=== PATIENT | male | born 1955 | race Caucasian/White ===

== ENCOUNTER 2017-08-28 18:37 | Inpatient (IN) | payer MEDICAID ==
[~2017-08-28] VITALS: Ht 182.9 cm; Wt 87.1 kg
[2017-08-28] MEDS ORDERED: VANCOMYCIN 1 G PREMIX 200 ML IV SCH (21:30)
[2017-08-28] MEDS ORDERED: PIPERACILLIN/TAZOBACTAM 3.375GM/50ML PREMIX IV ONE (21:30)
[2017-08-28] MEDS ORDERED: PIPERACILLIN/TAZ 3.375G PREMIX 50 ML IV NR (21:45)
[2017-08-28] MEDS ORDERED: MORPHINE SULFATE 4 MG/ML CPJ (NOT FOR IM USE) IV ONE (21:45)
[2017-08-28 22:33] LABS: BASOPHILS % 0.8 % (0.0-2.0); EOSINOPHILS % 2.9 % (0.0-5.0); HEMOGLOBIN. 14.1 g/dL (14.0-18.0); LYMPHOCYTES % 24.4 % (20.0-50.0); MEAN CORPUSCULAR HEMOGLOBIN 33.3 pg (28.0-32.0); MEAN PLATELET VOLUME 6.7 fl (7.4-10.4); MONOCYTES % 7.3 % (2.0-8.0); NEUTROPHILS % 64.6 % (40.0-76.0); PLATELET 435 x1000/uL (130-400); RED BLOOD CELL COUNT 4.22 mill/uL (4.7-6.1)
[2017-08-28 22:42] LABS: PROTHROMBIN TIME 10.2 sec (9.4-11.6)
[2017-08-28 22:45] LABS: CHLORIDE 103 mEq/L (98-107)
[2017-08-28] MEDS ORDERED: GABAPENTIN 300MG CAPSULE PO ONE (23:30)
[2017-08-28] MEDS ORDERED: HYDROCODONE/ACETAMINOPHEN 5/325MG TABLET PO ONE (23:30)
[2017-08-29 10:30] VITALS: BP 107/69
[2017-08-29] MEDS ORDERED: PIPERACILLIN/TAZ 3.375G PREMIX 50 ML IV SCH (12:00)
[2017-08-29] MEDS: MORPHINE SULFATE 4 MG/ML CPJ (NOT FOR IM USE) IV PRN ×3 (12:53→20:45)
[2017-08-29] MEDS ORDERED: NICOTINE 14MG PATCH TD SCH (14:00)
[2017-08-29] MEDS: ENOXAPARIN 40MG/0.4ML SYR SUBCUT SCH (14:47)
[2017-08-29] MEDS: PIPERACILLIN/TAZ 3.375G PREMIX 50 ML IV SCH ×2 (14:47→22:00)
[2017-08-29] MEDS: HYDROCODONE/ACETAMINOPHEN 5/325MG TABLET PO PRN ×3 (14:47→22:39)
[2017-08-29 16:00] VITALS: BP 111/75
[2017-08-29] MEDS: VANCOMYCIN 1500MG in DEXTROSE 5% WATER 250ML IV SCH (16:23)
[2017-08-29 16:29] VITALS: BP 107/69
[2017-08-29 20:00] VITALS: BP 102/76
[2017-08-29] MEDS: NICOTINE 14MG PATCH TD SCH (22:00)
[2017-08-29 23:58] LABS: CLARITY URINE CLEAR (CLEAR); COLOR URINE YELLOW (YELLOW); KETONES URINE NEGATIVE (NEGATIVE); LEUKOCYTE ESTERASE URINE NEGATIVE (NEGATIVE); NITRITE URINE NEGATIVE (NEGATIVE); OCCULT BLOOD URINE NEGATIVE (NEGATIVE); PROTEIN URINE NEGATIVE (NEGATIVE); SPECIFIC GRAVITY URINE 1.014 (1.005-1.030)
[2017-08-30] VITALS: BP 98/59
[2017-08-30 00:15] LABS: *AMPHETAMINES SCREEN URINE NEGATIVE (NEGATIVE); *BARBITURATES SCREEN URINE NEGATIVE (NEGATIVE); *BENZODIAZEPINES SCREEN URINE PRESUMTIVE POSITIVE (NEGATIVE); *COCAINE SCREEN URINE NEGATIVE (NEGATIVE); CANNABINOID URINE SCREEN NEGATIVE (NEGATIVE); METHADONE URINE SCREEN NEGATIVE (NEGATIVE); OPIATES URINE SCREEN PRESUMTIVE POSITIVE (NEGATIVE); PHENCYCLIDINE URINE SCREEN NEGATIVE (NEGATIVE)
[2017-08-30] MEDS: VANCOMYCIN 1500MG in DEXTROSE 5% WATER 250ML IV SCH (00:59)
[2017-08-30] MEDS: MORPHINE SULFATE 4 MG/ML CPJ (NOT FOR IM USE) IV PRN ×2 (01:12→04:36)
[2017-08-30 04:00] VITALS: BP 119/86
[2017-08-30] MEDS: PIPERACILLIN/TAZ 3.375G PREMIX 50 ML IV SCH ×3 (05:37→21:58)
[2017-08-30 08:00] VITALS: BP 113/68
[2017-08-30 08:04] LABS: BASOPHILS % 0.7 % (0.0-2.0); EOSINOPHILS % 4.1 % (0.0-5.0); HEMATOCRIT. 39.9 % (42.0-52.0); HEMOGLOBIN. 13.3 g/dL (14.0-18.0); LYMPHOCYTES % 35.7 % (20.0-50.0); MEAN CORPUSCULAR HEMOGLOBIN 32.5 pg (28.0-32.0); MEAN CORPUSCULAR VOLUME 97.4 fL (80.0-94.0); MEAN PLATELET VOLUME 7.1 fl (7.4-10.4); MONOCYTES % 9.3 % (2.0-8.0); NEUTROPHILS % 50.2 % (40.0-76.0); PLATELET 384 x1000/uL (130-400)
[2017-08-30] MEDS: HYDROCODONE/ACETAMINOPHEN 5/325MG TABLET PO PRN ×2 (08:11→15:44)
[2017-08-30 08:32] LABS: CHLORIDE 100 mEq/L (98-107)
[2017-08-30] MEDS: ENOXAPARIN 40MG/0.4ML SYR SUBCUT SCH (10:02)
[2017-08-30 12:00] VITALS: BP 108/68
[2017-08-30 15:51] VITALS: BP 119/86
[2017-08-30] MEDS ORDERED: CLONAZEPAM 1MG TABLET PO PRN (16:00)
[2017-08-30] MEDS ORDERED: IPRATROPIUM/ALBUTEROL 0.5-3(2.5)MG/3ML NEB HHN PRN (16:00)
[2017-08-30] MEDS ORDERED: BISACODYL 10MG SUPP PR PRN (16:00)
[2017-08-30] MEDS ORDERED: ALPRAZOLAM 0.5 MG TABLET PO PRN (16:30)
[2017-08-30] MEDS: VANCOMYCIN 1250MG in DEXTROSE 5% WATER 250ML IV SCH (18:58)
[2017-08-30 20:00] VITALS: BP 107/68
[2017-08-30] MEDS: HYDROCODONE/ACETAMINOPHEN 10/325MG TABLET PO PRN (20:33)
[2017-08-30] MEDS: METOPROLOL TARTRATE 25MG TABLET PO SCH (20:33)
[2017-08-30] MEDS: SILVER SULFADIAZINE 1% CREAM 50GM TOP SCH (20:33)
[2017-08-30] MEDS: NICOTINE 14MG PATCH TD SCH (20:34)
[2017-08-31] VITALS: BP 121/71
[2017-08-31 04:00] VITALS: BP 107/78
[2017-08-31] MEDS: HYDROCODONE/ACETAMINOPHEN 10/325MG TABLET PO PRN ×2 (04:05→17:50)
[2017-08-31] MEDS: PIPERACILLIN/TAZ 3.375G PREMIX 50 ML IV SCH ×2 (05:42→17:51)
[2017-08-31] MEDS ORDERED: OMEPRAZOLE 20MG CAPSULE EXTENDED RELEASE PO SCH (07:20)
[2017-08-31 08:00] VITALS: BP 124/82
[2017-08-31] MEDS ORDERED: BUDESONIDE 0.25MG/2ML NEB HHN SCH (09:00)
[2017-08-31] MEDS ORDERED: DOCUSATE SODIUM 100MG CAPSULE PO SCH (09:00)
[2017-08-31] MEDS ORDERED: BISACODYL 5MG TABLET PO SCH (09:00)
[2017-08-31] MEDS ORDERED: LISINOPRIL 10MG TABLET PO SCH (09:00)
[2017-08-31] MEDS: ENOXAPARIN 40MG/0.4ML SYR SUBCUT SCH (09:20)
[2017-08-31] MEDS: SILVER SULFADIAZINE 1% CREAM 50GM TOP SCH (09:21)
[2017-08-31] MEDS: METOPROLOL TARTRATE 25MG TABLET PO SCH (09:23)
[2017-08-31] MEDS: MORPHINE SULFATE 4 MG/ML CPJ (NOT FOR IM USE) IV PRN (09:49)
[2017-08-31 12:00] VITALS: BP 95/63
[2017-08-31] MEDS: VANCOMYCIN 1250MG in DEXTROSE 5% WATER 250ML IV SCH (13:28)
[2017-08-31 16:00] VITALS: BP 90/61
== END 2017-08-31 18:57 | disposition home or self-care (01) | DRG 383 ==
LOC: ER 18:37 → 6EST 23:24 → ENRESERV 08-29 09:48
PROVIDERS: ADMIT Internal Medicine; ATTEND Internal Medicine
PROC: 0JB70ZZ Excision of Back Subcutaneous Tissue and Fascia, Open Approach (ICD-10-PCS; principal; 2017-08-31)
DX: L03.115 Cellulitis of right lower limb (principal); T25.321A Burn of third degree of right foot, initial encounter; I10 Essential (primary) hypertension; L97.519 Non-pressure chronic ulcer of other part of right foot with unspecified severity; T21.03XA Burn of unspecified degree of upper back, initial encounter; J44.9 Chronic obstructive pulmonary disease, unspecified; F41.9 Anxiety disorder, unspecified; T25.022A Burn of unspecified degree of left foot, initial encounter; K21.9 Gastro-esophageal reflux disease without esophagitis; F17.210 Nicotine dependence, cigarettes, uncomplicated; V87.8XXA Person injured in other specified noncollision transport accidents involving motor vehicle (traffic), initial encounter; Y93.89 Activity, other specified; Y92.89 Other specified places as the place of occurrence of the external cause; Y99.8 Other external cause status; Z59.0 Homelessness; Z71.6 Tobacco abuse counseling
CPT/HCPCS: 36415; 71045; 73630; 80048; 80053; 80202; 80305; 81003; 85025; 85610; 87040; 93005; 93971; 96365; 96366; 96368; 96375; 97162; 99285; J1650; J2270; J2543; J3370; J7050; J7060; J7626